=== PATIENT | female | born 1975 | race Caucasian/White ===

== ENCOUNTER 2021-01-14 17:45 | Emergency (ER) | payer OTHER ==
[~2021-01-14] VITALS: Ht 160 cm; Wt 96.2 kg
[2021-01-14] MEDS ORDERED: METOPROLOL SUCC25 MG PO (18:15)
[2021-01-14] MEDS ORDERED: EFFEXOR XR75 MG PO (18:15)
[2021-01-14] MEDS ORDERED: WELLBUTRIN XL150 MG PO (18:15)
[2021-01-14] MEDS ORDERED: LEVOTHYROXINE50 MC1 PO (18:16)
[2021-01-14] MEDS ORDERED: OMEPRAZOLE20 MG PO (18:16)
[2021-01-14] MEDS ORDERED: NEURONTIN300 MG PO (18:16)
--- NOTE | 2021-01-15 15:49 | EKG ---
[facility] [address] [place], [place] [address] Signed Normal sinus rhythm Normal ECG No previous ECGs available Confirmed by CONSTANTINO DUMONT MD ([id number]) on 01/15/2021 3:49:20 PM Electronically Signed By: CONSTANTINO DUMONT MD 01/15/21 1549 PATIENT NAME: DANIEL SAVAGE SHANE Electrocardiogram DATE OF : 73 PHYSICIAN: CONSTANTINO DUMONT MD REPORT #: [id number] REPORT IS CONFIDENTIAL AND NOT TO BE RELEASED WITHOUT AUTHORIZATION
== END 2021-01-14 22:50 | disposition home or self-care (01) ==
LOC: ED 17:45
DX: F41.0 Panic disorder [episodic paroxysmal anxiety] (principal); R42 Dizziness and giddiness; R06.00 Dyspnea, unspecified; R07.9 Chest pain, unspecified; T44.7X5A Adverse effect of beta-adrenoreceptor antagonists, initial encounter; T43.215A Adverse effect of selective serotonin and norepinephrine reuptake inhibitors, initial encounter; T43.295A Adverse effect of other antidepressants, initial encounter; E03.9 Hypothyroidism, unspecified; I10 Essential (primary) hypertension; Z88.2 Allergy status to sulfonamides; Z88.1 Allergy status to other antibiotic agents; Z91.040 Latex allergy status; Z79.899 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 (current) drug therapy
CPT/HCPCS: 71045; 80053; 83735; 84484; 84703; 85025; 93005; 93010; 99284-25; J7121

== ENCOUNTER 2021-05-06 16:09 | Emergency (ER) | payer OTHER ==
[~2021-05-06] VITALS: Ht 160 cm; Wt 97.5 kg
[~2021-05-06 16:09] MED LIST: EFFEXOR XR75 MG PO; LEVOTHYROXINE50 MC1 PO; METOPROLOL SUCC25 MG PO; NEURONTIN300 MG PO; OMEPRAZOLE20 MG PO; WELLBUTRIN XL150 MG PO
--- OUTSIDE RECORDS SUMMARY | 2021-05-06 16:12 | XMS ---
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 Cathie VISIT COUNT (12 MO.) 1 Jose Fuller 2 Jose Flores 2 MARYCARMEN Reynolds TOTAL 5 NOTE: Visits indicate total known visits. 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 - Allergy status to other antibiotic agents - Adverse effect of other antidepressants, initial encounter - Chest pain, unspecified - Latex allergy status - Essential (primary) hypertension - Allergy status to sulfonamides - Adverse effect of beta-adrenoreceptor antagonists, initial encounter - Adverse effect of selective serotonin and norepinephrine reuptake inhibitors, initial encounter - Dizziness and giddiness - Hypothyroidism, unspecified - Panic disorder [episodic paroxysmal anxiety] - Dyspnea, unspecified 08/18/2020 15:57 Jose Flores [facility] TYPE: Emergency DIAGNOSES: - Encounter for removal of sutures - Contusion of other part of head, subsequent encounter - STITCHES REMOVE 08/11/2020 20:35 Jose Flores [facility] TYPE: Emergency DIAGNOSES: - Head Injury - Contusion of other part of head, initial encounter - Laceration without foreign body of other part of head, initial encounter - Alcohol use, unspecified with intoxication, uncomplicated - Contusion of scalp, initial encounter 06/13/2020 11:42 [facility] TYPE: Emergency DIAGNOSES: - Syncope and collapse - cough and fever - Hypokalemia - Viral infection, unspecified INPATIENT VISIT TRACKING (12 MO.) No inpatient visits to display in this time frame [id number]
[2021-05-06] MEDS ORDERED: HYDROCODON-ACE1 EA10 PO (16:48)
[2021-05-06] MEDS ORDERED: PREDNISONE20 MG PO (16:48)
== END 2021-05-06 17:02 | disposition home or self-care (01) ==
LOC: ED 16:09
DX: M54.16 Radiculopathy, lumbar region (principal); I10 Essential (primary) hypertension; E03.9 Hypothyroidism, unspecified; Z88.2 Allergy status to sulfonamides; Z88.1 Allergy status to other antibiotic agents; Z91.040 Latex allergy status; Z79.890 Hormone replacement therapy; Z79.899 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 (current) drug therapy
CPT/HCPCS: 81001; 87088; 99283; J7512

== ENCOUNTER 2021-08-11 13:38 | Emergency (ER) | payer OTHER ==
[~2021-08-11] VITALS: Ht 160 cm; Wt 104.3 kg
[~2021-08-11 13:38] MED LIST changes: +HYDROCODON-ACE1 EA10 PO; +PREDNISONE20 MG PO
--- OUTSIDE RECORDS SUMMARY | 2021-08-11 13:40 | XMS ---
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 EBrittney VISIT COUNT (12 MO.) 2 Jose Flores 3 MARYCARMEN Reynolds TOTAL 5 NOTE: Visits indicate total known visits. 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 DIAGNOSES: - Head Injury - Contusion of other part of head, initial encounter - Laceration without foreign body of other part of head, initial encounter - Alcohol use, unspecified with intoxication, uncomplicated - Contusion of scalp, initial encounter INPATIENT VISIT TRACKING (12 MO.) No inpatient visits to display in this time frame [id number]
[2021-08-11] MEDS ORDERED: ROBITUSSIN COU237 M2 PO (15:26)
[2021-08-11] MEDS ORDERED: PREDNISONE20 MG PO (15:26)
[2021-08-11] MEDS ORDERED: PROVENTIL HFA6.7 GM INH (15:26)
== END 2021-08-11 15:30 | disposition home or self-care (01) ==
LOC: ED 13:38
DX: J20.9 Acute bronchitis, unspecified (principal); E03.9 Hypothyroidism, unspecified; I10 Essential (primary) hypertension; Z88.2 Allergy status to sulfonamides; Z91.040 Latex allergy status; Z88.1 Allergy status to other antibiotic agents; Z79.899 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 (current) drug therapy; Z20.822 Contact with and (suspected) exposure to COVID-19
CPT/HCPCS: 71045; 94640; 94664; 99283-25; J7512; U0003

== ENCOUNTER 2022-01-08 23:05 | Emergency (ER) | payer OTHER ==
[~2022-01-08] VITALS: Ht 160 cm; Wt 104.3 kg
[~2022-01-08 23:05] MED LIST changes: +PROVENTIL HFA6.7 GM INH; +ROBITUSSIN COU237 M2 PO
--- OUTSIDE RECORDS SUMMARY | 2022-01-08 23:08 | XMS ---
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 Cathie VISIT COUNT (12 MO.) 4 MARYCARMEN Reynolds TOTAL 4 NOTE: Visits indicate total known visits. ED/UCC VISIT TRACKING (12 MO.) 01/08/2022 23:05 [facility] [place] TYPE: Emergency COMPLAINT: - FOOT INJURY 08/11/2021 13:39 [facility] [place] TYPE: Emergency COMPLAINT: - SOB, FATIGUE, COUGH, HEADACHE, BODY ACHES DIAGNOSES: - Latex allergy status - Acute bronchitis, unspecified - Cough, unspecified - Hypothyroidism, unspecified - Allergy status to other antibiotic agents - Contact with and (suspected) exposure to COVID-19 - Allergy status to sulfonamides - Other mcc (current) drug therapy - Essential (primary) hypertension 05/06/2021 16:11 [facility] [place] TYPE: Emergency COMPLAINT: - LOWER BACK PAIN, INCONTINENCE DIAGNOSES: - Hypothyroidism, unspecified - LOW BACK PAIN, UNSPECIFIED - Radiculopathy, lumbar region - Hormone replacement therapy - Latex allergy status - Essential (primary) hypertension - Allergy status to other antibiotic agents - Low back pain, unspecified - 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 care 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 - Allergy status to sulfonamides 01/14/2021 17:46 [facility] [place] TYPE: Emergency COMPLAINT: - MEDICATION REACTION DIAGNOSES: - Panic disorder [episodic paroxysmal anxiety] - Adverse effect of other antidepressants, initial encounter - Dizziness and giddiness - Other mcc (current) drug therapy - Adverse effect of beta-adrenoreceptor antagonists, initial encounter - Essential (primary) hypertension - Dyspnea, unspecified - Chest pain, unspecified - Hypothyroidism, unspecified - Allergy status to other antibiotic agents - Adverse effect of selective serotonin and norepinephrine reuptake inhibitors, initial encounter - Allergy status to sulfonamides - Latex allergy status INPATIENT VISIT TRACKING (12 MO.) No inpatient visits to display in this time frame [id number]
[2022-01-09] MEDS ORDERED: CEPHALEXIN500 M1 PO (00:44)
[2022-01-09] MEDS ORDERED: ULTRAM50 MG PO (00:44)
== END 2022-01-09 01:39 | disposition home or self-care (01) ==
LOC: ED 23:05
DX: S92.532A Displaced fracture of distal phalanx of left lesser toe(s), initial encounter for closed fracture (principal); W22.8XXA Striking against or struck by other objects, initial encounter; E03.9 Hypothyroidism, unspecified; I10 Essential (primary) hypertension; Z88.2 Allergy status to sulfonamides; Z91.040 Latex allergy status; Z88.1 Allergy status to other antibiotic agents; Z79.899 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 (current) drug therapy
CPT/HCPCS: 73630; 96372; 99283-25; A9270; J1885

== ENCOUNTER 2022-12-15 09:06 | Emergency (ER) | payer OTHER ==
[~2022-12-15] VITALS: Ht 160 cm; Wt 93.3 kg
--- OUTSIDE RECORDS SUMMARY | ~2022-12-15 | XMS | Continuity of Care Document ---
Demographics + + + | Address | [address] | | | [place] [address] | + + + | Preferred Language | Unknown | + + + | Marital Status | Never | + + + | Shinto Affiliation | Unknown | + + + | Race | White | + + + | Ethnic Group | Not or | + + + Author + + + | Author | [facility] | + + + | Organization | [facility] | + + + | Address | [address] | | | [place] [address] | + + + | Phone | | + + + Care Team Providers + + + + | Care School Office Manager Name | Role | Phone | + + + + Unavailable | Unavailable | + + + + Unavailable | Unavailable | + + + + Allergies and Intolerances + + + + + + | date | description | facility | reaction | severity | + + + + + + | (no date) | Vancomycin | [facility] | (no reaction) | (no severity) | [facility] | | | + + + + + + | (no date) | Latex | [facility] | (no reaction) | (no severity) | [facility] | | | + + + + + + | (no date) | Rash | [facility] | (no reaction) | (no severity) | | [facility] | | | + + + + + + | (no date) | Latex | [facility] | (no reaction) | (no severity) | | [facility] | | | + + + + + + | (no date) | Anaphylaxis | [facility] | (no reaction) | (no severity) | | [facility] | | | + + + + + + | (no date) | Vancomycin | [facility] | (no reaction) | (no severity) | | [facility] | | | + + + + + + | (no date) | Latex | [facility] | (no reaction) | (no severity) | | [facility] | | | + + + + + + Encounters No information. Functional Status No information. Immunizations No information. Medications + + + + | date | description | facility | + + + + | 2022-01-09 00:00 | GABAPENTIN | [facility] | + + + + | 2022-01-09 00:00 | CEPHALEXIN | [facility] | + + + + | 2022-01-09 00:00 | OMEPRAZOLE | [facility] | + + + + | 2021-05-06 00:00 | predniSONE | [facility] | + + + + | 2022-01-09 00:00 | VENLAFAXINE HCL | [facility] | + + + + | 2021-08-11 00:00 | ALBUTEROL SULFATE MDI | [facility] | | | (HFA) | | + + + + | 2022-01-09 00:00 | TRAMADOL HCL | [facility] | + + + + | 2022-01-09 00:00 | METOPROLOL SUCCINATE | [facility] | + + + + | 2022-01-09 00:00 | Levothyroxine Sodium | [facility] | + + + + | 2022-01-09 00:00 | BUPROPION HCL | [facility] | + + + + Problems + + + + | date | description | facility | + + + + | 2021-01-14 00:00 | Panic attack | [facility] | + + + + | 2021-01-14 00:00 | Adverse effect of drug | [facility] | + + + + | 2021-05-06 00:00 | Lumbar back pain with | [facility] | | | radiculopathy affecting | | | | left lower extremity | | + + + + | 2021-08-11 00:00 | Acute bronchitis | [facility] | + + + + | 2022-01-09 00:00 | Open fracture of phalanx | [facility] | | | of toe | | + + + + Procedures No information. Results/Labs No information. Social History + + + + | date | description | facility | + + + + | 2022-01-09 00:00 | Unknown if ever smoked | [facility] | + + + + Vital Signs + + + +---------+ | date | measurement | value | units | + + + +---------+ | 2022-01-08 00:00 | BMI | 40.7 | kg/m2 | + + + +---------+ | 2022-01-08 00:00 | height_metric | 160.02 | cm | + + + +---------+ | 2022-01-08 00:00 | height_standard | 63 | in | + + + +---------+ | 2022-01-08 00:00 | weight_metric | 104.33 | kg | + + + +---------+ | 2022-01-08 00:00 | weight_standard | 230 | lb | + + + +---------+ | 2022-01-08 00:00 | weight_standard | 230.01 | lb | + + + +---------+ | 2022-01-09 00:00 | BP_diastolic | 132 | mmHg | + + + +---------+ | 2022-01-09 00:00 | BP_systolic | 178 | mmHg | + + + +---------+ | 2022-01-09 00:00 | heart_rate | 79 | /min | + + + +---------+ | 2022-01-09 00:00 | o2_saturation | 99 | % | + + + +---------+ | 2022-01-09 00:00 | respiration_rate | 18 | /min | + + + +---------+ | 2022-01-09 00:00 | temperature_metric | 37.28 | C | | | | | | + + + +---------+ | 2022-01-09 00:00 | | 99.1 | F | | | temperature_standar | | | | | d | | | + + + +---------+"
--- OUTSIDE RECORDS SUMMARY | ~2022-12-15 | XMS | Continuity of Care Document ---
Demographics + + + | Address | [address] | | | [place] [address] | + + + | Preferred Language | Unknown | + + + | Marital Status | Never | + + + | Mu-Ism Affiliation | Unknown | + + + | Race | White | + + + | Ethnic Group | Not or | + + + Author + + + | Author | [facility] | + + + | Organization | [facility] | + + + | Address | [address] | | | [place] [address] | + + + | Phone | | + + + Care Team Providers + + + + | Care Law Researcher Name | Role | Phone | + [...] + | 2022-01-09 00:00 | GABAPENTIN | [facility] | + + + + | 2022-01-09 00:00 | CEPHALEXIN | [facility] | + + + + | 2022-01-09 00:00 | OMEPRAZOLE | [facility] | + + + + | 2021-05-06 00:00 | predniSONE | [facility] | + + + + | 2022-01-09 00:00 | VENLAFAXINE HCL | [facility] | + + + + | 2021-08-11 00:00 | ALBUTEROL SULFATE MDI | [facility] | | | (HFA) | | + + + + | 2022-01-09 00:00 | TRAMADOL HCL | [facility] | + + + + | 2022-01-09 00:00 | METOPROLOL SUCCINATE | [facility] | + + + + | 2022-01-09 00:00 | Levothyroxine Sodium | [facility] | + + + + | 2022-01-09 00:00 | BUPROPION HCL | [facility] | + + + + Problems + + + + | date | description | facility | + + + + | 2021-01-14 00:00 | Panic attack | [facility] | + + + + | 2021-01-14 00:00 | Adverse effect of drug | [facility] | + + + + | 2021-05-06 00:00 | Lumbar back pain with | [facility] | | | radiculopathy affecting | | | | left lower extremity | | + + + + | 2021-08-11 00:00 | Acute bronchitis | [facility] | + + + + | 2022-01-09 00:00 | Open fracture of phalanx | [facility] | | | of toe | | + + + + Procedures No information. Results/Labs No information. Social History + + + + | date | description | facility | + + + + | 2022-01-09 00:00 | Unknown if ever smoked | [facility] | + + + + Vital Signs [...]
[~2022-12-15 09:06] MED LIST changes: +CEPHALEXIN500 M1 PO; +ULTRAM50 MG PO
--- OUTSIDE RECORDS SUMMARY | 2022-12-15 09:41 | XMS ---
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 Cathie VISIT COUNT (12 MO.) 2 MARYCARMEN Reynolds TOTAL 2 NOTE: Visits indicate total known visits. ED/UCC VISIT TRACKING (12 MO.) 12/15/2022 09:07 [facility] [place] TYPE: Emergency COMPLAINT: - COGNITIVE DECLINE 01/08/2022 23:05 [facility] [place] TYPE: Emergency COMPLAINT: - FOOT INJURY DIAGNOSES: - Allergy status to other antibiotic agents - Allergy status to sulfonamides - Displaced fracture of distal phalanx of left lesser toe(s), initial encounter for closed fracture - Essential (primary) hypertension - Hypothyroidism, unspecified - Latex allergy status - Other roasterman (current) drug therapy - Pain in left finger(s) - Striking against or struck by other objects, initial encounter INPATIENT VISIT TRACKING (12 MO.) No inpatient visits to display in this time frame [id number]
[2022-12-15] MEDS ORDERED: LYRICA75 MG PO (09:43)
[2022-12-15 09:45] LABS: EOSINOPHILS 4.3 % (0-6); HEMATOCRIT 42.7 % (35.0-50.0); HEMOGLOBIN 14.8 g/dL (12.0-18.0); LYMPHOCYTES 38.6 % (24-44); MCH 31.7 (27-36); MCHC 34.6 g/dl (30-36); MCV 91.6 fl (81-99); MONOCYTES 5.9 % (0-12); NEUTROPHILS 50.2 % (39-80); PLATELET COUNT 220 K/uL (140-440); RBC 4.66 M/ul (4.3-5.7); RDW 13.4 (10.5-15.0)
[2022-12-15 09:54] LABS: ALBUMIN 3.7 g/dL (3.4-5.0); ALBUMIN/GLOBULIN RATIO 0.97 (1.1-2.4); ALCOHOL, MEDICAL <3 ng/dL (<3); ALKALINE PHOSPHATASE 90 U/L (46-116); ALT (SGPT) 59 U/L (14-59); ANION GAP 14.5 (7-21); AST (SGOT) 28 U/L (15-37); BILIRUBIN, TOTAL 0.5 ng/dL (0.2-1.0); BUN/CREATININE RATIO 14.28 (6.0-28.6); CALCIUM 9.1 mg/dL (8.5-10.1); CARBON DIOXIDE 24 mmol/L (21-32); CHLORIDE 106 mmol/L (98-107); GLOMERULAR FILTRATION RATE,EST 107 mL/min (>60); POTASSIUM 3.5 mmol/L (3.5-5.1); PROTEIN, TOTAL 7.5 g/dL (6.4-8.2); UREA NITROGEN 10 mg/dL (7-18)
[2022-12-15 10:48] LABS: BILIRUBIN, URINE NEGATIVE (negative); BLOOD/HGB, URINE NEGATIVE (Negative); KETONE, URINE NEGATIVE (Negative); LEUK ESTERASE, URINE NEGATIVE (negative); NITRITE, URINE NEGATIVE (negative)
[2022-12-15 10:52] LABS: AMPHETAMINES, UR NEGATIVE (NEGATIVE); BARBITURATES, UR NEGATIVE (NEGATIVE); BENZODIAZEPINES, UR NEGATIVE (NEGATIVE); BUPRENORPHINE,UR NEGATIVE (NEGATIVE); COCAINE, UR NEGATIVE (NEGATIVE); MARIJUANA (THC), UR POSITIVE (NEGATIVE); MDMA, UR NEGATIVE (NEGATIVE); METHADONE, UR NEGATIVE (NEGATIVE); METHAMPHETAMINE, UR NEGATIVE (NEGATIVE); OPIATES, UR NEGATIVE (NEGATIVE); OXYCODONE, UR NEGATIVE (NEGATIVE); PHENCYCLIDINE, UR NEGATIVE (NEGATIVE); TRICYCLIC ANTIDEPRESSANT, UR NEGATIVE (NEGATIVE)
[2022-12-15 11:45] VITALS: BP 143/103
== END 2022-12-15 11:45 | disposition home or self-care (01) ==
LOC: ED 09:06
PROVIDERS: Emergency Medicine
DX: R41.81 Age-related cognitive decline (principal); Z88.2 Allergy status to sulfonamides; Z91.040 Latex allergy status; Z88.1 Allergy status to other antibiotic agents; Z79.51 Long term (current) use of inhaled steroids; Z79.2 Long term (current) use of antibiotics; Z79.899 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 (current) drug therapy; I10 Essential (primary) hypertension; E03.9 Hypothyroidism, unspecified
CPT/HCPCS: 36415; 70450; 80053; 81003; 85025; 99285-25; G0480